=== PATIENT | male | born 1960 | race Caucasian/White ===

== ENCOUNTER → 2021-10-04 | Outpatient (CLI) | payer BC, SELFPAY ==
[2021-10-04 12:02] LABS: AST(SGOT) 14 U/L (15-37); Alanine Aminotransfer ALT/SGPT 23 U/L (16-61); Albumin, Serum 3.9 g/dL (3.2-5.0); Alkaline Phosphatase 71 U/L (45-117); Bilirubin, Direct 0.12 mg/dL (0.00-0.30); Cholesterol 210 mg/dL (200); Globulin 3.8 g/dL (2.2-4.2); High Density Lipoprotein 55 mg/dL; Protein, Total 7.7 g/dL (6.4-8.2); Triglycerides 142 mg/dL; Very Low Density Lipoprotein 28 mg/dL (5-40)
== END | disposition home or self-care (01) ==
PROVIDERS: PCP Family Medicine; Visit Provider Internal Medicine Cardiovascular Disease
DX: E78.00 Pure hypercholesterolemia, unspecified (principal); R01.1 Cardiac murmur, unspecified; R00.2 Palpitations; E78.2 Mixed hyperlipidemia; I10 Essential (primary) hypertension
CPT/HCPCS: 36415; 80061; 80076

== ENCOUNTER → 2021-10-23 | Outpatient (CLI) | payer BC, SELFPAY ==
--- NOTE | 2021-10-23 12:18 | ECHOD_ITS ---
Reason For Study: Murmur Procedure This was a 2D Doppler, Color Flow transthoracic echocardiogram. The exam was of good technical quality. Exam performed in department. Left Ventricle Normal LV size. Left ventricular systolic function is normal. The estimated ejection fraction is 65 %. The global longitudinal strain = -20 % (normal). No evidence for diastolic dysfunction. No regional wall motion abnormalities noted. Right Ventricle Normal RV size. Normal systolic function. Atria Normal left atrium. Normal right atrium. No doppler evidence for ASD. Mitral Valve There is no mitral annular calcification. Normal mitral valve. Moderate (2+) eccentric mitral valve insufficiency. Tricuspid Valve Normal tricuspid valve. Mild to moderate (1-2+) tricuspid valve insufficiency. Right ventricular systolic pressure estimated to be 27 mmHg. Aortic Valve Trisinus/trileaflet aortic valve. Normal aortic valve. Pulmonic Valve The pulmonic valve is not well visualized. Trivial pulmonic valve insufficiency. Great Vessels Normal sized aortic root. Pericardium/Pleural No pericardial effusion. MMode/2D Measurements & Calculations LVIDd: 4.1 cm IVSd: 0.98 cm Ao root diam: 3.2 cm LVIDs: 2.3 cm LVPWd: 0.97 cm RVDd: 3.0 cm FS: 42.7 % LAV(MOD-bp): 45.6 ml LVAd ap4: 25.3 cm2 LVAd ap2: 24.0 cm2 LAV(MOD-bp) Indexed: 25.7 ml/m2 LVLd ap4: 8.0 cm LVLd ap2: 7.7 cm LAV(MOD-sp2): 47.9 ml EDV(MOD-sp4): 66.5 ml EDV(MOD-sp2): 62.2 ml LAV(MOD-sp4): 42.4 ml EDV(sp4-el): 67.5 ml EDV(sp2-el): 63.2 ml LVAs ap4: 13.0 cm2 LVAs ap2: 12.4 cm2 LVLs ap4: 6.6 cm LVLs ap2: 6.6 cm ESV(MOD-sp4): 23.0 ml ESV(MOD-sp2): 19.7 ml ESV(sp4-el): 21.9 ml ESV(sp2-el): 19.7 ml EF(MOD-sp4): 65.3 % EF(MOD-sp2): 68.3 % EF(sp4-el): 67.5 % SV(MOD-sp4): 43.4 ml SV(MOD-sp2): 42.4 ml SV(sp4-el): 45.5 ml LA dimension(2D): 4.0 cm LA A4 area: 16.0 cm2 RA A4 area: 13.9 cm2 Time Measurements MV dec time: 0.20 sec Doppler Measurements & Calculations MV E max tommy: 79.7 cm/sec Lat Peak E' Tommy: 10.2 cm/sec Med Peak E' Tommy: 8.4 cm/sec MV A max tommy: 91.3 cm/sec E/E' lat: 7.8 E/E' med: 9.5 MV E/A: 0.87 MV dec slope: 406.5 cm/sec2 Ao V2 max: 174.3 cm/sec LV V1 max: 142.7 cm/sec Ao max P.1 mmHg LV V1 max P.1 mmHg Ao V2 mean: 122.8 cm/sec LV V1 mean P.1 mmHg Ao mean P.8 mmHg LV V1 mean: 94.5 cm/sec Ao V2 VTI: 41.1 cm LV V1 VTI: 31.7 cm PA V2 max: 134.8 cm/sec TR max tommy: 243.7 cm/sec PA V2 mean: 86.5 cm/sec TR max P.8 mmHg ECHO/Echo Complete Interpretation Summary Left ventricular systolic function is normal. The estimated ejection fraction is 65 %. The global longitudinal strain = -20 % (normal). Moderate (2+) eccentric mitral valve insufficiency. Mild to moderate (1-2+) tricuspid valve insufficiency. Trivial pulmonic valve insufficiency. Right ventricular systolic pressure estimated to be 27 mmHg. No evidence for diastolic dysfunction. Ordering Physician: Champ Gibbs Referring Physician: Apollo Horn MD Performed By: Zulema Ely RDCS
--- NOTE | 2021-10-23 15:48 | STRESSREP_ITS ---
Stress Test Report Date: 10-23-2021 Procedure: Exercise tolerance test Indications: Palpitations; family history of premature CAD; hyperlipidemia; hypertension Consent: Per the patient Procedure: The patient exercised on a César protocol for 7 minutes and 30 seconds completing Stage II and 1 minute and 30 seconds of Stage III achieving a peak heart rate of 144 bpm (90% predicted maximal heart rate) with a peak blood pressure 200/104 mmHg and a peak MET capacity of approximately 9 MET's. The baseline ECG demonstrated normal sinus rhythm. The peak exercise ECG demonstrated somatic/motion artifact with no obvious ECG changes. There were no cardiac dysrhythmias pretest, during exercise, or recovery. The functional capacity was considered good. The patient had no complaint of chest discomfort during exercise or recovery. The examination was discontinued secondary to dyspnea. Impression: 1. Technically adequate (percent predicted maximal heart rate greater than 85%) exercise tolerance test 2. Peak exercise ECG with somatic/motion artifact with no obvious ECG changes 3. There were no cardiac dysrhythmias during exercise or recovery 4. Blood pressure response: Resting hypertension-normal response This note was generated with [employer] software. It may contain incorrect words, spelling, and punctuation that were not noted in checking the note before signing.
== END | disposition home or self-care (01) ==
PROVIDERS: PCP Family Medicine; Referring Provider Internal Medicine Cardiovascular Disease; Visit Provider Internal Medicine Cardiovascular Disease
DX: R00.2 Palpitations (principal); R01.1 Cardiac murmur, unspecified; E78.2 Mixed hyperlipidemia; I10 Essential (primary) hypertension
CPT/HCPCS: 93017; 93306

== ENCOUNTER → 2021-11-05 | Outpatient (CLI) | payer BC, SELFPAY ==
--- NOTE | 2021-11-05 08:44 | RDU_ITS ---
Reason For Study: HTN Right Renal Artery Left Renal Artery Right renal artery ostium 72.3/23 Left renal artery ostium 91.3/21.1 RSV/EDV. PSV/EDV. Right renal artery proximal Left renal artery proximal PSV/EDV 192.8/37.5 PSV/EDV. 126.4/27.7 . Right renal artery mid 166.9/37.5 Left renal artery mid 117.7/34.2 PSV/EDV. PSV/EDV . Right renal artery distal Left renal artery distal 103.2/31.9 110.9/27.2 PSV/EDV. PSV/EDV. Right RAR 2.55. Left RAR 1.67. Right Renal Parenchyma Left Renal Parenchyma Upper Pole Medula 31.1/8.4 PSV/EDV. Left upper pole medulla 24.5/7.9 Right upper pole medulla EDR 0.3 . PSV/EDV . Right upper pole medulla R.I. Left upper pole medulla EDR 0.3 . 0.73 . Left upper pole medulla R.I. 0.68 . Upper Ben Cortx 17.6/5.3 PSV/EDV. UP Cortex 17.7/6.7 PSV/EDV. Right upper pole cortex EDR 0.3 . Left upper pole cortex EDR 0.4 . Right upper pole cortex R.I. 0.70 . Left upper pole cortex R.I. 0.62 . Right lower Pole medulla 30.5/9 Left lower Pole medulla 25.7/9.2 PSV/EDV . PSV/EDV . Right lower pole medulla EDR 0.3 . Left lower pole medulla EDR 0.4 . Right lower pole medulla R.I. Left lower pole medulla R.I. 0.64 . 0.71 . Lower Pole Cortx 14.1/4.9 PSV/EDV. Lower Pole Cortex 15.1/4.7 PSV/EDV. Left lower pole cortex EDR 0.3 . Right lower pole cortex EDR 0.3 . Left lower pole cortex R.I. 0.66 . Right lower pole cortex R.I. 0.69 . Left Renal Hilar Right Renal Hilar LT Hilar avg 71.1/28 PSV/EDV . Right Hilar avg 57.5/21.2 PSV/EDV. Left hilar acceleration time 30 Right hilar acceleration time 60 m/sec. m/sec. Left Renal Dimensions Right Renal Dimensions Left kidney size 10.46 cm . Right kidney size 11.04 cm . Left cortical dimension 1.51 cm . Right cortical dimension 1.53 cm . Aorta Proximal abdominal aorta 2.04 x 2.04 cm . Proximal abdominal aorta peak systolic velocity is 75.7 cm/sec . Distal abdominal aorta 1.21 x 1.23 cm . Distal abdominal aorta peak systolic velocity is 101.5 cm/sec . VL/Renal Artery Duplex Ultrasound Interpretation Summary Right renal artery velocities are elevated. The right renal-aortic ratio is nor mal which indicates no hemodynamically significant renal artery stenosis. The right kidney is normal in size The right renal vein is patent Left renal artery velocities are normal. The left kidney is normal in size. The left renal vein is patent Ordering Physician: Champ Gibbs Referring Physician: Apollo Horn MD Performed By: Damaris Pedraza RVT
== END | disposition home or self-care (01) ==
LOC: CVS 08:43
PROVIDERS: PCP Family Medicine; Referring Provider Internal Medicine Cardiovascular Disease; Visit Provider Internal Medicine Cardiovascular Disease
DX: R01.1 Cardiac murmur, unspecified (principal); R00.2 Palpitations; E78.2 Mixed hyperlipidemia; I10 Essential (primary) hypertension
CPT/HCPCS: 93975

== ENCOUNTER → 2022-05-24 | Outpatient (CLI) | payer BC, SELFPAY ==
[2022-05-24 13:37] LABS: AST(SGOT) 21 U/L (15-37); Alanine Aminotransfer ALT/SGPT 35 U/L (13-56); Albumin, Serum 3.6 g/dL (3.2-5.0); Alkaline Phosphatase 68 U/L (45-117); Bilirubin, Direct 0.16 mg/dL (0.00-0.30); Cholesterol 123 mg/dL (200); Globulin 3.5 g/dL (2.2-4.2); High Density Lipoprotein 52 mg/dL; Protein, Total 7.1 g/dL (6.4-8.2); Triglycerides 74 mg/dL; Very Low Density Lipoprotein 15 mg/dL (5-40)
== END | disposition home or self-care (01) ==
PROVIDERS: PCP Family Medicine; Visit Provider Internal Medicine Cardiovascular Disease
DX: E78.2 Mixed hyperlipidemia (principal)
CPT/HCPCS: 36415; 80061; 80076

== ENCOUNTER → 2022-12-18 | Outpatient (CLI) | payer BC, SELFPAY ==
[2022-12-18 13:58] LABS: AST(SGOT) 20 U/L (15-37); Alanine Aminotransfer ALT/SGPT 37 U/L (13-56); Albumin, Serum 3.8 g/dL (3.2-5.0); Alkaline Phosphatase 68 U/L (45-117); Anion Gap 3 (5-15); BUN 15 mg/dL (7-18); BUN/Creat Ratio 15.8 RATIO (10-20); Bilirubin, Direct 0.12 mg/dL (0.00-0.30); Calcium,Total 9.1 mg/dL (8.5-10.1); Chloride 104 mmol/L (98-107); Cholesterol 178 mg/dL (200); Creatinine, Serum 0.95 mg/dL (0.55-1.02); EST Glomerular Filtration Rate 64 mL/min (>60); Est Glom Filt Rate - Afr Amer 77 mL/min (>60); Globulin 4.1 g/dL (2.2-4.2); Glucose 95 mg/dL (74-106); High Density Lipoprotein 59 mg/dL; Potassium 3.9 mmol/L (3.5-5.1); Protein, Total 7.9 g/dL (6.4-8.2); Sodium Level 138 mmol/L (136-145); Triglycerides 181 mg/dL; Very Low Density Lipoprotein 36 mg/dL (5-40)
== END | disposition home or self-care (01) ==
LOC: LAB 12:28
PROVIDERS: PCP Family Medicine; Referring Provider Nurse Practitioner Family; Visit Provider Nurse Practitioner Family
DX: E78.2 Mixed hyperlipidemia (principal); I10 Essential (primary) hypertension
CPT/HCPCS: 36415; 80048; 80061; 80076